=== PATIENT | male | born 1970 | race Caucasian/White ===

== ENCOUNTER 2017-12-24 18:55 | Emergency (ER) | payer OTHER ==
[~2017-12-24] VITALS: Ht 177.8 cm; Wt 74.8 kg
--- NOTE | 2017-12-24 19:34 | ED UPPER/LOWER EXTREMITY COMPL ---
History of Present Illness General Chief Complaint: Lower Extremity Injury Stated Complaint: PER PT"A CANADIAN BACON TIER FELL ON MY L LEG, NOW L LEG PAIN" Source: patient Exam Limitations: no limitations Vital Signs & Intake/Output Vital Signs & Intake/Output Vital Signs Date Time Temp Pulse Resp B/P B/P Pulse O2 O2 Flow FiO2 Mean Ox Delivery Rate 12/24 2030 97.7 97 16 136/74 99 Room Air 12/24 1920 97.1 96 18 147/74 97 Room Air Allergies Coded Allergies: No Known Allergies (12/24/17) Triage Note: 47M HAD HEAVY PLASTIC CANADIAN BACON TIER FELL ON LEFT LEG APPROX 20 MINS AGO, LIMPS INTO TRIAGE DECLINES WHEELCHAIR. SMALL ABRASION TO LATERAL SIDE OF LOWER KNEE AND CALF/BAIRD PAIN. MEDICATED WITH MOTRIN PER eMAR Triage Nurses Notes Reviewed? yes Onset: Abrupt Duration: hour(s): Timing: single episode today Severity: moderate, severe Pain/Injury Location: Left: Leg, Knee. Method of Injury: direct blow No Modifying Factors: none HPI: 47-year-old male comes into emergency room with complaints of left knee/left upper leg pain. 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 Sharp throbbing pain. pain is continuous.. Denies any other associated symptoms. (Ashish Aguirre) Past History Travel History Traveled to [place] past 21 day No Medical History Any Pertinent Medical History? see below for history Neurological: NONE EENT: NONE Cardiovascular: NONE Respiratory: NONE Gastrointestinal: NONE Hepatic: NONE Renal: NONE Musculoskeletal: NONE Psychiatric: NONE Endocrine: NONE Blood Disorders: NONE Cancer(s): NONE Surgical History Surgical History: non-contributory Psychosocial History What is your primary language Slovenian Tobacco Use: Current Daily Use Daily Tobacco Use Amount/Type: => 5 Cigarettes daily ETOH Use: occasional use Illicit Drug Use: denies illicit drug use Family History Hx Contributory? No (Ashish Aguirre) Review of Systems Review of Systems Constitutional: Reports: no symptoms. EENTM: Reports: no symptoms. Respiratory: Reports: no symptoms. Cardiovascular: Reports: no symptoms. Gastrointestinal/Abdominal: Reports: no symptoms. Genitourinary: Reports: no symptoms. Musculoskeletal: Reports: see HPI. Skin: Reports: no symptoms. Neurological/Psychological: Reports: no symptoms. Hematologic/Endocrine: Reports: no symptoms. Immunological: Reports: no symptoms. All Other Systems: Reviewed and Negative (Ashish Aguirre) Physical Exam Physical Exam General Appearance: well developed/nourished, mild distress Head: atraumatic Eyes: Bilateral: normal appearance. Ears, Nose, Throat: normal ENT inspection, hearing grossly normal Neck: normal inspection Cardiovascular/Respiratory: no respiratory distress Back: normal inspection Leg Left: soft tissue tenderness, limited range of motion Knee Left: soft tissue tenderness, limited range of motion Neurologic/Tendon: normal sensation, normal motor functions, normal tendon functions, responds to pain, no evidence tendon injury, no pulse deficit Skin: intact, normal color, warm/dry Lymphatic: no anterior cervical crow (Ashish Aguirre) Progress Differential Diagnosis: contusion, dislocation, fracture, sprain, tendon injury Plan of Care: Orders Procedure Date/time Status Durable Medical Equipment 12/24 2007 Active Diagnostic Imaging: Viewed by Me: Radiology Read. Discussed w/RAD: Radiology Read. Radiology Impression: PATIENT: MARIBELL MORTON PRESENT AGE: 47 PATIENT ACCOUNT NO: [id number] : 69 LOCATION: [facility] ORDERING PHYSICIAN: Ashish PÉREZ SERVICE DATE: 12/24/17 EXAM TYPE: RAD - XRY-KNEE COMPLETE LEFT; [id number], LEFT Examination: [id number], LEFT, XRY-KNEE COMPLETE LEFT Indication: LEFT KNEE, TIBIA PAIN, 500 POUND CANADIAN BACON TIER FELL ON IT Comparison: No pertinent prior studies are currently available for comparison. Technique: 6 plain film views of the left knee obtained as well as frontal and lateral views the left tibia and fibula. Findings: No significant knee joint effusion. Bones are in normal anatomic alignment with no acute fracture or dislocation seen. Surrounding soft tissue is essentially unremarkable. No additional acute bony abnormality seen in the visualized tibia and fibula. Impression: No acute bony abnormality. DICTATED BY: Gianfranco Martinez MD DATE/TIME DICTATED:12/24/171958 EMERGENCY RESPONSE OFFICER: PAMELA DATE/TIME TRANSCRIBED:12/24/171958 CONFIDENTIAL, DO NOT COPY WITHOUT APPROPRIATE AUTHORIZATION. <Electronically signed in Other Vendor System> SIGNED BY: Gianfranco Martinez MD 12/24/172002 (Ashish Aguirre) Departure Departure Disposition: HOME OR SELF CARE Condition: Stable Clinical Impression Primary Impression: Contusion of left knee Additional Instructions: Ice. Rest. Motrin for pain. Elevation. Follow-up with orthopedic doctor provided if not better in 3-5 days. If symptoms do not improve you'll require further evaluation with possible repeat x-rays as well as evaluation by marketing project specialist. Sprains can last anywhere from days to weeks. No high impact running or jumping if you have an ankle sprain or any type of lower extremity sprain. Return to normal activity only after symptoms have resolved. Please go over all results of today's visit with your primary care doctor. Contact your primary care doctor to let them know you were here in the emergency room. There may be nonspecific findings which may not be related to your visit today here in the emergency room but may require further evaluation and chronic monitoring by your primary care doctor. If you had a laceration today the chance of foreign body always remains. You should follow-up with your primary care doctor for recheck in 3-5 days for a wound check. If you had an x-ray done there is a chance that a fracture could have been missed on initial read and you should follow-up with your primary care doctor for repeat x-rays if symptoms persist. If your blood pressure was elevated here in the emergency room please have rechecked by [facility] primary care doctor within the next 48. If you were prescribed a narcotic here in the emergency room or any type of controlled substances you're not allowed to drive while taking this medication or operate any type of heavy machinery. Narcotics can make you feel lightheaded dizziness nausea and can cause constipation. You may need to milk pickup driver a stool softener. Thank you for choosing [facility] emergency room. Please return to the emergency room immediately if you have any other concerns worsening of symptoms. Departure Forms: Customer Survey General Discharge Information Comments 12/24/2017 8:21:55 PM Clinically looks well. No evidence of fracture. Treated symptomatically for contusion. (Ashish Aguirre) PA/CALL MANAGER Co-Sign Statement Statement: ED Attending supervision documentation- [] I saw and evaluated the patient. I have also reviewed all the pertinent lab results and diagnostic results. I agree with the findings and the plan of care as documented in the PA's/CALL MANAGER's documentation. [X] I have reviewed the ED Record and agree with the PA's/CALL MANAGER's documentation. [] Additions or exceptions (if any) to the PAs/CALL MANAGER's note and plan are summarized below: [] (Jules CAMARENA,Pepito Elizalde) Procedures Splinting Location: left knee Manual Alignment Performed: No Pre-Made Type: knee imobilizer Splint Applied By: splint applied by me Pre-Proc Neuro Vasc Exam: normal Post-Proc Neuro Vasc Exam: normal (Ashish Aguirre)
--- NOTE | 2017-12-24 20:03 | RADIOLOGY REPORT ---
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 Technique: 6 plain film views of the left knee obtained as well as frontal and lateral views the left tibia and fibula. Findings: No significant knee joint effusion. Bones are in normal anatomic alignment with no acute fracture or dislocation seen. Surrounding soft tissue is essentially unremarkable. No additional acute bony abnormality seen in the visualized tibia and fibula. Impression: No acute bony abnormality.
[2017-12-24 20:31] VITALS: BP 136/74
== END 2017-12-24 20:52 ==
LOC: ERH 18:55
DX: S80.02XA Contusion of left knee, initial encounter (principal); W20.8XXA Other cause of strike by thrown, projected or falling object, initial encounter; Y92.9 Unspecified place or not applicable; Y93.9 Activity, unspecified
CPT/HCPCS: 73562-LT; 73590-LT

== ENCOUNTER 2018-02-19 18:00 | Emergency (ER) | payer SELFPAY ==
[~2018-02-19] VITALS: Ht 175.3 cm; Wt 55.8 kg
--- NOTE | 2018-02-19 18:10 | ED GENERAL ADULT ---
History of Present Illness General Chief Complaint: Dyspnea (COPD, CHF, Other) Stated Complaint: SOB Source: patient Exam Limitations: no limitations Vital Signs & Intake/Output Vital Signs & Intake/Output Vital Signs Date Time Temp Pulse Resp B/P B/P Pulse O2 O2 Flow FiO2 Mean Ox Delivery Rate 02/19 1958 98.2 80 16 134/80 99 Room Air Room Air 02/19 1922 Room Air 02/19 1814 96.4 103 18 124/79 99 Room Air Allergies Coded Allergies: No Known Allergies (12/24/17) Reconcile Medications Albuterol Sulfate (Proventil Hfa) 90 MCG HFA.AER.AD 2 PUF INH Q4 BRONCHITIS Doxycycline Hyclate (Vibramycin) 100 MG CAPSULE 1 CAP PO BID BRONCHITIS Prednisone 20 MG TABLET 1 TAB PO BID BRONCHITIS Triage Nurses Notes Reviewed? yes Onset: Abrupt Duration: week(s): Timing: recent history HPI: 02/19/18 9:31 PM 47-year-old male presents to the emergency department complaining of intermittent difficulty breathing and cough. The patient states that he has smoked for many years. He says that he has had intermittent episodes of difficulty breathing. He denies any chest pain or fever. Past History Travel History Traveled to [place] past 21 day No Medical History Any Pertinent Medical History? see below for history Neurological: NONE EENT: NONE Cardiovascular: NONE Respiratory: NONE Gastrointestinal: NONE Hepatic: NONE Renal: NONE Musculoskeletal: NONE Psychiatric: NONE Endocrine: NONE Blood Disorders: NONE Cancer(s): NONE Surgical History Surgical History: non-contributory Psychosocial History What is your primary language Croatian Family History Hx Contributory? No Review of Systems Review of Systems Constitutional: Denies: fever. EENTM: Reports: no symptoms. Respiratory: Reports: cough, short of breath. Cardiovascular: Denies: chest pain. GI: Denies: abdominal pain. Genitourinary: Reports: no symptoms. Musculoskeletal: Reports: no symptoms. Skin: Reports: no symptoms. Neurological/Psychological: Reports: no symptoms. Hematologic/Endocrine: Reports: no symptoms. Immunologic/Allergic: Reports: no symptoms. Physical Exam Physical Exam General Appearance: alert, awake, anxious, mild distress Head: atraumatic, normal appearance Eyes: Bilateral: normal appearance, PERRL, EOMI. Ears, Nose, Throat: normal pharynx, normal ENT inspection Neck: normal inspection, supple, full range of motion Respiratory: decreased breath sounds Cardiovascular: regular rate/rhythm Peripheral Pulses: 4+ radial (R), 4+ radial (L) Gastrointestinal: non-tender Back: normal range of motion Extremities: normal inspection, normal range of motion Neurologic/Psych: no motor/sensory deficits, awake, alert, oriented x 3 Skin: intact, normal color, warm/dry Core Measures ACS in differential dx? No CVA/TIA Diagnosis: No Sepsis Present: No Sepsis Focused Exam Completed? No Progress Differential Diagnoses I considered the following diagnoses in my evaluation of the patient: [COPD, asthma, bronchitis, pneumonia, pneumothorax, pulmonary embolism] Plan of Care: Orders Procedure Date/time Status RAPID VIRAL INFLUENZA A 02/19 1817 Complete EKG 02/19 180 Active Microbiology 02/19 1835 NASOPHARYN: Influenza Virus A & B Rapid Smear - COMP Initial ED EKG: NSR Departure Departure Disposition: HOME OR SELF CARE Condition: Stable Clinical Impression Primary Impression: Bronchitis Secondary Impressions: COPD (chronic obstructive pulmonary disease) Referrals: Patient Has No Primary Care Dr (PCP/Family) Departure Forms: Customer Survey General Discharge Information Prescriptions: Current Visit Scripts Doxycycline Hyclate (Vibramycin) 1 CAP PO BID #20 CAP Albuterol Sulfate (Proventil Hfa) 2 PUF INH Q4 #1 INHAL Prednisone 1 TAB PO BID #10 TAB Comments I considered the diagnosis of pulmonary embolism. His resting heart rate is 80. He has a cough and has smoked for many years. His PERC score is low risk. He was treated with albuterol, Vibramycin and prednisone. He was encouraged not to smoke. He will follow-up with a [facility] practice physician on Sunday or return to the emergency department if worse. Critical Care Note Critical Care Note Critical Care Time: non-applicable
--- NOTE | 2018-02-19 18:53 | RADIOLOGY REPORT ---
EXAMINATION: CHEST 2 VIEWS CLINICAL INFORMATION: Cough and short of breath. COMPARISON: No recent pertinent prior studies are available for comparison. TECHNIQUE: PA and lateral views of the chest obtained. FINDINGS: Lungs well expanded. Mild chronic appearing reticular markings are seen bilaterally but no superimposed focal infiltrate, effusion, edema, or pneumothorax. Cardiac and mediastinal silhouettes within normal limits for size. No acute bony abnormality. IMPRESSION: Mild chronic appearing reticular markings but no acute process seen otherwise.
[2018-02-19] MEDS ORDERED: VIBRAMYCIN100 MG PO (19:37)
[2018-02-19] MEDS ORDERED: PREDNISONE20 M1 PO (19:37)
[2018-02-19] MEDS ORDERED: PROVENTIL HFA6.7 GM INH (19:37)
[2018-02-19 19:58] VITALS: BP 134/80
== END 2018-02-19 19:58 ==
LOC: ERH 18:00
DX: J40 Bronchitis, not specified as acute or chronic (principal); J44.9 Chronic obstructive pulmonary disease, unspecified
CPT/HCPCS: 71046; 87804; 87804-59; 93005; 93010

== ENCOUNTER 2018-03-23 18:59 | Emergency (ER) | payer SELFPAY ==
[~2018-03-23] VITALS: Ht 175.3 cm; Wt 65.8 kg
[~2018-03-23 18:59] MED LIST: PREDNISONE20 M1 PO; PROVENTIL HFA6.7 GM INH; VIBRAMYCIN100 MG PO
[2018-03-23 19:07] VITALS: BP 130/80
--- NOTE | 2018-03-23 19:59 | ED HAND/WRIST INJURY COMPLAINT ---
History of Present Illness General Chief Complaint: Hand or Wrist Injury Stated Complaint: FINGER LAC' Source: patient, old records Exam Limitations: no limitations Vital Signs & Intake/Output Vital Signs & Intake/Output Vital Signs Date Time Temp Pulse Resp B/P B/P Pulse O2 O2 Flow FiO2 Mean Ox Delivery Rate 03/23 1907 98.9 107 18 130/80 97 Room Air Allergies Coded Allergies: No Known Allergies (12/24/17) Reconcile Medications Albuterol Sulfate (Proventil Hfa) 90 MCG HFA.AER.AD 2 PUF INH Q4 BRONCHITIS Cephalexin (Keflex) 500 MG CAPSULE 1 CAP PO TID ppx Doxycycline Hyclate (Vibramycin) 100 MG CAPSULE 1 CAP PO BID BRONCHITIS Prednisone 20 MG TABLET 1 TAB PO BID BRONCHITIS Triage Note: PT FROM HOME C/O LAC TO RIGHT HAND 5TH DIGIT. PT 20 MINS PRIOR TO ARRIVAL WAS AT A PICNIC WALKING DOWN THE STAIRS WHEN HIS HAND WAS ON THE RAILING AND A SPLINTER BECAME LODGED IN PTS RIGHT PINKY. .VSS. PT HAS 2IN LAC TO PINKY, CLEANED AND REBANDAGED IN TRIAGE. Triage Nurses Notes Reviewed? yes Occurred: just prior to arrival Duration: minute(s): (30), constant Timing: single episode today Injury Environment: home Severity: mild Severity Numbers: 1 Pain/Injury Location: Right: 5th finger. Context: laceration Method of Injury: laceration No Modifying Factors: none Associated Symptoms: none HPI: 87-year-old male presents to the ER for evaluation status post sustaining laceration to his right fifth finger just prior to arrival while he was holding onto a wooden railing he states that a splinter cut his finger. He removed the splinter in its entirety. He denies any difficulty with range of motion the finger no numbness or tingling there is no other injury his last tetanus is unknown. (Selvin PÉREZ,Shaheen) Past History Travel History Traveled to [place] past 21 day No Medical History Any Pertinent Medical History? see below for history Neurological: NONE EENT: NONE Cardiovascular: NONE Respiratory: asthma, bronchitis Gastrointestinal: NONE Hepatic: NONE Renal: NONE Musculoskeletal: NONE Psychiatric: NONE Endocrine: NONE Blood Disorders: NONE Cancer(s): NONE Tetanus Vaccine: 03/23/18 Surgical History Surgical History: non-contributory Psychosocial History What is your primary language Estonian Tobacco Use: Current Daily Use Daily Tobacco Use Amount/Type: =< 4 Cigarettes daily Family History Hx Contributory? No (Shaheen Jang) Review of Systems Review of Systems Constitutional: Reports: see HPI. Comments Review of systems: See HPI, All other systems negative. Constitutional, no chills no fever Skin: no rashes, no change in skin GI: No nausea no vomiting Muscle skeletal: No joint pain, no back pain, no neck pain, Neurologic: , no headache Heme/endocrine: No bruising (Shaheen Jang) Physical Exam Physical Exam General Appearance: well developed/nourished, no apparent distress, alert Hand Left: normal inspection Hand Right: lacerations, 5th finger Comments: Well-developed well-nourished patient in no apparent distress. HEENT: Atraumatic, extraocular motion intact Neck: Supple, FROM Back: FROM Respiratory: No respiratory distress. Patient speaking in full complete sentences. Shoulder: Atraumatic/Stable. FROM . Elbow: Atraumatic/stable. FROM. No laxity Upper arm/Forearm: Atraumatic. Nontender. 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 Brisk cap refill Lower Extremities: full range of motion Neuro: awake, alert, and oriented to person, place and time. There were no obvious focal neurologic abnormalities. Skin: Warm & dry;No appreciable rash on exposed skin Psych: Mood affect normal, normal memory normal judgment. (Shaheen Jang) Progress Differential Diagnosis: contusion, compartment syndrome, dislocation, fracture, EMBEDDED FB, CELLULITIS, TENDON INJ Plan of Care: Orders Procedure Date/time Status XRY-FINGERS, RIGHT 03/23 1936 Active Current Medications Sig/Mariama Start time Last Medication Dose Stop Time Status Admin Lidocaine 20 ML ONCE ONE 03/23 2000 UNVr (Lidocaine 1%) 03/23 2001 Digital block performed by myself patient medicated with tetanus IM sutures 6 placement myself 4-0 patient tolerated procedure well and discussed with him plan of care the possibility of foreign by not seen on x-ray or examination still exists return precautions including signs of infection or gout forward discussed at length he feels comfortable with plan he will return in 7-10 days for suture removal cleared for discharge Diagnostic Imaging: Viewed by Me: Radiology Read. Discussed w/RAD: Radiology Read. Radiology Impression: PATIENT: MARIBELL MORTON PRESENT AGE: 47 PATIENT ACCOUNT NO: [id number] : 69 LOCATION: [facility] ORDERING PHYSICIAN: Shaheen PÉREZ SERVICE DATE: 03/23/18-1935 EXAM TYPE: RAD - XRY- FINGERS, RIGHT EXAMINATION: XR FINGER, RIGHT CLINICAL INFORMATION: Laceration of the fifth finger, evaluation for foreign body COMPARISON: None TECHNIQUE: AP view of the hand and 2 views of the right fifth finger. FINDINGS: Presence of superimposed dressing limits evaluation. There is soft tissue swelling of the fifth finger without evidence of radiodense foreign body. No acute fracture or dislocation seen. IMPRESSION: No acute fracture or dislocation or radiodense foreign body. DICTATED BY: Hilda Crabtree MD DATE/TIME DICTATED:03/23/182014 [address] ADVOCATE:PAMELA DATE/TIME TRANSCRIBED:03/23/182014 CONFIDENTIAL, DO NOT COPY WITHOUT APPROPRIATE AUTHORIZATION. <Electronically signed in Other Vendor System> SIGNED BY: Hilda Crabtree MD 03/23/182020 (Shaheen Jang) Departure Departure Time of Disposition: 2025 Disposition: HOME OR SELF CARE Condition: Stable Clinical Impression Primary Impression: Finger laceration Referrals: Patient Has No Primary Care Dr (PCP/Family) Additional Instructions: Keep area clean and covered as discussed, bacitracin daily. Return to ER in 7- 10 days for suture removal. KEFLEX for prophylaxis Please understand that foreign bodies such as glass or wood may not be visible to the naked eye or on plain x-rays. If the wound becomes red, swollen, increasingly more painful or if there is any drainage from the wound, please have it reevaluated by a physician for the possibility of a retained foreign body. Departure Forms: Customer Survey General Discharge Information Prescriptions: Current Visit Scripts Cephalexin (Keflex) 1 CAP PO TID #15 CAP (Shaheen Jang) PA/RADIOLOGIC TECHNOLOGIST MAMMOGRAM Co-Sign Statement Statement: ED Attending supervision documentation- [] I saw and evaluated the patient. I have also reviewed all the pertinent lab results and diagnostic results. I agree with the findings and the plan of care as documented in the PA's/RADIOLOGIC TECHNOLOGIST MAMMOGRAM's documentation. [X] I have reviewed the ED Record and agree with the PA's/RADIOLOGIC TECHNOLOGIST MAMMOGRAM's documentation. [] Additions or exceptions (if any) to the PAs/RADIOLOGIC TECHNOLOGIST MAMMOGRAM's note and plan are summarized below: [] (Jules CAMARENA,Pepito Elizalde) Procedures Laceration/Wound Repair Laceration/Wound Repair: Wound Location: r 5th finger Wound's Depth, Shape: linear, superficial Wound Length (cm): 2 Wound Explored: clean, no foreign body removed, irrigated extensively Irrigated w/ Saline (ccs): 200 Betadine Prep? Yes Anesthesia: digit block Volume Anesthetic (ccs): 4 Wound Repaired With: sutures Suture Size/Type: 4:0 Number of Sutures: 6 Layer Closure? No Sterile Dressing Applied: Yes Date of Last Tetanus: 03/23/18 Tetanus Status: up to date (Selvin PÉREZ,Shaheen)
--- NOTE | 2018-03-23 20:21 | RADIOLOGY REPORT ---
EXAMINATION: XR FINGER, RIGHT CLINICAL INFORMATION: Laceration of the fifth finger, evaluation for foreign body COMPARISON: None TECHNIQUE: AP view of the hand and 2 views of the right fifth finger. FINDINGS: Presence of superimposed dressing limits evaluation. There is soft tissue swelling of the fifth finger without evidence of radiodense foreign body. No acute fracture or dislocation seen. IMPRESSION: No acute fracture or dislocation or radiodense foreign body.
[2018-03-23] MEDS ORDERED: KEFLEX500 M1 PO (20:26)
== END 2018-03-23 20:32 ==
LOC: ERH 18:59
DX: S61.216A Laceration without foreign body of right little finger without damage to nail, initial encounter (principal); W45.8XXA Other foreign body or object entering through skin, initial encounter; Y93.9 Activity, unspecified; Y92.9 Unspecified place or not applicable
CPT/HCPCS: 73140-RT; 90471; 90714; J2001

== ENCOUNTER 2018-03-31 11:23 | Emergency (ER) | payer SELFPAY ==
[~2018-03-31 11:23] MED LIST changes: +KEFLEX500 M1 PO
[2018-03-31 11:44] VITALS: BP 130/77
--- NOTE | 2018-03-31 13:48 | ED ANIMAL BITE/WOUND CHECK ---
History of Present Illness General Chief Complaint: Laceration Procedure Stated Complaint: SUTURE REMOVAL Source: patient Exam Limitations: no limitations Vital Signs & Intake/Output Vital Signs & Intake/Output Vital Signs Date Time Temp Pulse Resp B/P B/P Pulse O2 O2 Flow FiO2 Mean Ox Delivery Rate 03/31 1144 97.0 80 18 130/77 98 Room Air Allergies Coded Allergies: No Known Allergies (12/24/17) Reconcile Medications Albuterol Sulfate (Proventil Hfa) 90 MCG HFA.AER.AD 2 PUF INH Q4 BRONCHITIS Cephalexin (Keflex) 500 MG CAPSULE 1 CAP PO TID ppx Doxycycline Hyclate (Vibramycin) 100 MG CAPSULE 1 CAP PO BID BRONCHITIS Prednisone 20 MG TABLET 1 TAB PO BID BRONCHITIS Triage Note: HERE FOR SUTURE REMOVAL AFTER SUTURED FROM SPLINTER REMOVAL. 6 REMOVED IN TRIAGE. NO DRAINAGE, ERYTHEMA OR PAIN TO LEFT 5TH DIGIT. DENIES FEVERS CHILLS. VISUALIZED BY PA IN TRIAGE. TOLERATED REMOVAL WELL. Triage Nurses Notes Reviewed? yes HPI: 47 YEAR OLD MALE WITH RECENT PLACEMENT OF SUTURES TO LEFT 5TH DIGIT. DENIES ANY DRAINAGE OR ERYTHMEA. NO FEVER. PAIN CONTROLLED WITHOUT MEDICATION. (Kathleen Smith PA-C) Past History Travel History Traveled to [place] past 21 day No Medical History Any Pertinent Medical History? see below for history Neurological: NONE EENT: NONE Cardiovascular: NONE Respiratory: asthma, bronchitis Gastrointestinal: NONE Hepatic: NONE Renal: NONE Musculoskeletal: NONE Psychiatric: NONE Endocrine: NONE Blood Disorders: NONE Cancer(s): NONE Tetanus Vaccine: 03/23/18 Surgical History Surgical History: non-contributory Psychosocial History What is your primary language Slovenian Tobacco Use: Never used Family History Hx Contributory? No (Kathleen Smith PA-C) Review of Systems Review of Systems Constitutional: Denies: no symptoms, see HPI. (Kathleen Smith PA-C) Physical Exam Physical Exam General Appearance: well developed/nourished, no apparent distress, comfortable Head: atraumatic, normal appearance Neck: normal inspection Peripheral Pulses: 2+ radial (R), 2+ radial (L), 2+ ulnar (L) Extremities: normal range of motion, evidence of injury, injury present, no ligament instability Neurologic/Psych: awake, alert, oriented x 3 Skin: intact, warm/dry (Kathleen Smith PA-C) Progress Differential Diagnosis: cellulitis, joint infection Plan of Care: LEFT 5TH DIGIT LAC S/P REMOTE SUTRURE PLACEMENT. WOUND WITHOUT ERYTHEMA OR DRAINAGE, NO PAIN. GOOD ROM WITHOUT DEFICIT. WELL HEALED. SUTURES REMOVED IN TRIAGE- 6 TOTAL. (Kathleen Smith PA-C) Departure Departure Disposition: HOME OR SELF CARE Condition: Stable Clinical Impression Primary Impression: Laceration of finger Referrals: Patient Has No Primary Care Dr (PCP/Family) Departure Forms: Customer Survey General Discharge Information (Kathleen Smith PA-C) PA/PARALEGAL LEGAL SECRETARY Co-Sign Statement Statement: ED Attending supervision documentation- I saw and evaluated the patient. I have also reviewed all the pertinent lab results and diagnostic results. I agree with the findings and the plan of care as documented in the PA's/PARALEGAL LEGAL SECRETARY's documentation. x I have reviewed the ED Record and agree with the PA's/PARALEGAL LEGAL SECRETARY's documentation. [] Additions or exceptions (if any) to the PAs/PARALEGAL LEGAL SECRETARY's note and plan are summarized below: [] (Rian CAMARENA,Branden)
== END 2018-03-31 12:02 ==
LOC: ERH 11:23
DX: Z48.02 Encounter for removal of sutures (principal)